=== PATIENT | female | born 1980 | race Caucasian/White ===

== ENCOUNTER 2018-02-24 18:24 | Emergency (ER) | payer OTHER, MEDICAID ==
[~2018-02-24] VITALS: Ht 170.2 cm; Wt 90.7 kg
[~2018-02-24 18:24] MED LIST: METH40TA14 PO; METHADONE PO
[2018-02-24 18:36] VITALS: BP_SYST 163
[2018-02-24] MEDS ORDERED: cefTRIAXone 250 MG in LIDOCAINE 1%, 20 ML MDV 0.9 ML IM ONE (18:45)
[2018-02-24 19:35] LABS: BILIRUBIN,URINE NEGATIVE (NEGATIVE); BLOOD, URINE 3+ (NEGATIVE); CLARITY/URINE CLEAR (CLEAR); COLOR,URINE YELLOW (YELLOW); GLUCOSE,URINE NEGATIVE (NEGATIVE); KETONES,URINE NEGATIVE (NEGATIVE); LEUKOCYTE ESTERASE ,URINE 2+ (NEGATIVE); NITRITE, URINE NEGATIVE (NEGATIVE); PH,URINE 6.5 (5.0-8.0); PROTEIN URINE NEGATIVE (NEGATIVE); UROBILINOGEN,URINE 0.2 (0.2-1.0)
[2018-02-24 19:44] LABS: RBC,URINE 0-3 /HPF (0-3)
[2018-02-24 19:45] LABS: BACTERIA,URINE FEW /HPF (None Seen); MUCUS,URINE None Seen /LPF (None Seen)
[2018-02-24 20:41] VITALS: BP_SYST 135
== END 2018-02-24 20:41 | disposition home or self-care (01) ==
LOC: SED 18:24
DX: N39.0 Urinary tract infection, site not specified (principal); N76.0 Acute vaginitis; A54.9 Gonococcal infection, unspecified; R03.0 Elevated blood-pressure reading, without diagnosis of hypertension; F32.9 Major depressive disorder, single episode, unspecified; Z98.84 Bariatric surgery status; Z88.1 Allergy status to other antibiotic agents
CPT/HCPCS: 36415; 81000; 81025; 86592; 87086; 87210; 99284; J0696; J2001